=== PATIENT | female | born 1960 | race Caucasian/White ===

== ENCOUNTER → 2017-02-06 | Outpatient (CLI) | payer OTHER ==
[~2017-02-06] MED LIST: LISINOPRIL30 MG PO; METOPROLOL TART25 MG PO
== END ==
LOC: HEART CORB 11:00
DX: R00.2 Palpitations (principal); R00.0 Tachycardia, unspecified
CPT/HCPCS: 93306

== ENCOUNTER → 2020-10-06 | Outpatient (CLI) | payer MEDICARE, SELFPAY | LOC: HEART 5 07:33 | DX: I42.9 Cardiomyopathy, unspecified (principal); I20.8 Other forms of angina pectoris; R06.02 Shortness of breath | CPT/HCPCS: 78452; A9502; J2785 ==

== ENCOUNTER → 2021-01-16 | Outpatient (CLI) | payer OTHER, SELFPAY | LOC: HEART 5 12-19 09:30 | DX: I42.0 Dilated cardiomyopathy (principal); I50.22 Chronic systolic (congestive) heart failure; I08.2 Rheumatic disorders of both aortic and tricuspid valves | CPT/HCPCS: 93306 ==

== ENCOUNTER → 2021-07-19 | Outpatient (CLI) | payer OTHER | LOC: ECHO 10:59 | DX: R00.2 Palpitations (principal) | CPT/HCPCS: ECHO; 93306 ==

== ENCOUNTER → 2021-09-06 | Outpatient (CLI) | payer OTHER ==
[2021-09-06 15:34] LABS: RED BLOOD COUNT 4.59 M/UL (4.00-5.10); WHITE BLOOD COUNT 5.7 K/UL (4.5-11.0)
[2021-09-06 15:39] LABS: BUN/CREATININE RATIO 19 (0-10)
== END ==
LOC: LAB 12:31
PROVIDERS: Internal Medicine Cardiovascular Disease
DX: I11.0 Hypertensive heart disease with heart failure (principal); I50.22 Chronic systolic (congestive) heart failure; I42.0 Dilated cardiomyopathy; R06.02 Shortness of breath
CPT/HCPCS: 36415; 71046; 80048; 85025

== ENCOUNTER 2021-09-08 08:11 | Outpatient (CLI) | payer OTHER ==
[~2021-09-08] VITALS: Ht 162.6 cm; Wt 84.4 kg
[2021-09-08] MEDS ORDERED: CO Q10100 MG PO (09:21)
[2021-09-08] MEDS ORDERED: COREG6.25 MG PO (09:22)
[2021-09-08] MEDS ORDERED: LASIX TAB 20 MG20 MG GT (09:22)
[2021-09-08] MEDS ORDERED: OMEPRAZOLE20 MG PO (09:23)
[2021-09-08] MEDS ORDERED: KLOR-CON M1010 MEQ PO (09:24)
[2021-09-08] MEDS ORDERED: VALSARTAN40 MG PO (09:24)
[2021-09-08] MEDS ORDERED: VIIBRYD40 MG PO (09:25)
[2021-09-08] MEDS ORDERED: CLINDAMYCIN HC300 MG PO (14:53)
[2021-09-08] MEDS ORDERED: LEVOFLOXACIN500 MG PO (14:53)
[2021-09-08] MEDS ORDERED: HYDROCODON-ACE1 EAC4 PO (14:53)
== END 2021-09-09 09:54 | disposition home or self-care (01) ==
LOC: CATH 08:11 → PROG CARE 17:36 → CATH 09-09 09:54
DX: I42.0 Dilated cardiomyopathy (principal); I11.0 Hypertensive heart disease with heart failure; I50.22 Chronic systolic (congestive) heart failure; Z86.16 Personal history of COVID-19; E78.5 Hyperlipidemia, unspecified; I47.1 Supraventricular tachycardia; I49.3 Ventricular premature depolarization; Z88.0 Allergy status to penicillin; Z88.5 Allergy status to narcotic agent; E11.9 Type 2 diabetes mellitus without complications; Z20.822 Contact with and (suspected) exposure to COVID-19; I08.1 Rheumatic disorders of both mitral and tricuspid valves
CPT/HCPCS: 71045; J1200; J1644; J2250; J3010; J3370; J7040; J7050; J7070; Q9965

== ENCOUNTER → 2022-03-15 | Outpatient (CLI) | payer OTHER ==
[~2022-03-15] MED LIST changes: +CLINDAMYCIN HC300 MG PO; +CO Q10100 MG PO; +COREG6.25 MG PO; +HYDROCODON-ACE1 EAC4 PO; +KLOR-CON M1010 MEQ PO; +LASIX TAB 20 MG20 MG GT; +LEVOFLOXACIN500 MG PO; +OMEPRAZOLE20 MG PO; +VALSARTAN40 MG PO; +VIIBRYD40 MG PO
[2022-03-15 13:15] LABS: BUN/CREATININE RATIO 11 (0-10)
== END ==
LOC: LAB 11:36
PROVIDERS: Physician Assistant
DX: I42.0 Dilated cardiomyopathy (principal); E78.5 Hyperlipidemia, unspecified; I11.0 Hypertensive heart disease with heart failure; I50.22 Chronic systolic (congestive) heart failure; I49.3 Ventricular premature depolarization; R00.2 Palpitations
CPT/HCPCS: 36415; 80053; 80061; 84439; 84443; 84481

== ENCOUNTER → 2022-04-13 | Outpatient (CLI) | payer OTHER | LOC: ECHO 04-11 10:30 | DX: I42.9 Cardiomyopathy, unspecified (principal); R00.2 Palpitations; I08.1 Rheumatic disorders of both mitral and tricuspid valves | CPT/HCPCS: ECHO; 93306 ==